=== PATIENT | male | born 1995 ===

== ENCOUNTER 2017-03-18 19:07 | Emergency (ER) | payer MEDICAID ==
[2017-03-18 19:23] VITALS: BP 145/73; PULSE 89; RESP 16; TEMP 102; O2SAT 99
[2017-03-18] MEDS ORDERED: Sodium Chloride 0.9% 1,000 ML IV STA (19:40)
[2017-03-18 20:20] LABS: BASO % 0.1 % (0.0-2.0); EOS % 0.2 % (0.0-4.0); HEMOGLOBIN 14.7 g/dL (12.0-18.0); LYMPH # 0.8 K/uL (1.0-4.3); LYMPH % 3.7 % (20.0-40.0); MEAN CELL VOLUME 91.1 fl (80.0-94.0); MEAN CORPUSCULAR HEMOGLOBIN 31.1 pg (27.0-31.0); MEAN CORPUSCULAR HGB CONC 34.2 g/dL (33.0-37.0); MEAN PLATELET VOLUME 7.8 fl (7.2-11.7); MONO # 1.3 K/uL (0.0-0.8); MONO % 6.3 % (0.0-10.0); NEUT # 19.1 K/uL (1.8-7.0); NEUT % 89.7 % (50.0-75.0); PLATELET COUNT 224 K/uL (130-400); RBC 4.72 Mil/uL (4.40-5.90); RED CELL DISTRIBUTION WIDTH 12.8 % (11.5-14.5); WHITE BLOOD COUNT 21.4 K/uL (4.8-10.8)
--- NOTE | 2017-03-18 20:21 | ED PDOC ---
HPI: CCC, URI, Sore Throat Time Seen by Provider: 03/18/17 19:30 Chief Complaint (Nursing): ENT Problem Chief Complaint (Provider): ENT Problem History Per: Patient History/Exam Limitations: no limitations Onset/Duration Of Symptoms: Days (x1) Sick Contacts (Context): Family Member(s) Associated Symptoms: Fever, Chills, Sore Throat, Vomiting Additional Complaint(s): Suleman Fuller, 21 year old male presents to the ED for a sore throat occurring for 1 day prior to arrival beginning in the morning. The patient reports he has had recent sick contacts stating his family members whom he lives with have strep throat, therefore the patient thinks he also has strep throat. He also states he has epigastric pain, vomited a couple of times today, chills, fever, and body aches. He denies cough, diarrhea, chest pain, shortness of breath, and has not taken any medications for his fever or sore throat. PMD: [facility] Past Medical History Reviewed: Historical Data, Nursing Documentation, Vital Signs Vital Signs: Last Vital Signs Temp 102.0 F H 03/18/17 19:19 Pulse 89 03/18/17 19:19 Resp 16 03/18/17 19:19 BP 145/73 03/18/17 19:19 Pulse Ox 99 03/18/17 20:33 - Medical History PMH: Asthma - Family History Family History: States: Unknown Family Hx - Social History Current smoker - smoking cessation education provided: No Ex-Smoker (has not smoked in the last 12 months): No Alcohol: None Drugs: Cannabis (occasional) - Home Medications Home Medications: Ambulatory Orders Medication Instructions Recorded Montelukast [Singulair] 10 mg PO DAILY 12/20/14 Ibuprofen 600 mg PO Q8H PRN #60 tab 03/12/15 Acetaminophen/Codeine 1 tab PO Q4H #10 tab 05/13/16 [Tylenol/Codeine 300 MG/30 MG] Cephalexin [cephalexin] 500 mg PO BID #14 cap 05/13/16 Ibuprofen [Motrin] 600 mg PO Q8 PRN #21 tab 06/23/16 Amoxicillin 875 mg PO BID #20 tablet 03/18/17 Ibuprofen [Motrin] 400 mg PO Q6 PRN #20 tab 03/18/17 Ondansetron ODT [Zofran ODT] 4 mg PO Q8 PRN #12 odt 03/18/17 - Allergies Allergies/Adverse Reactions: Allergies Allergy/AdvReac Type Severity Reaction Status Date / Time No Known Allergies Allergy Verified 05/13/16 21:37 Review of Systems ROS Statement: Except As Marked, All Systems Reviewed And Found Negative Constitutional: Positive for: Fever, Chills ENT: Positive for: Throat Pain (sore throat) Cardiovascular: Negative for: Chest Pain Respiratory: Negative for: Cough, Shortness of Breath Gastrointestinal: Positive for: Vomiting, Abdominal Pain (epigastric pain). Negative for: Diarrhea Musculoskeletal: Positive for: Other (body aches) Physical Exam - Reviewed Nursing Documentation Reviewed: Yes Vital Signs Reviewed: Yes - Physical Exam Appears: Positive for: Well, Non-toxic, No Acute Distress Head Exam: Positive for: ATRAUMATIC, NORMAL INSPECTION, NORMOCEPHALIC Skin: Positive for: Normal Color, Warm, DRY Eye Exam: Positive for: EOMI, Normal appearance, PERRL ENT: Positive for: Normal ENT Inspection, Tonsillar Exudate (white exudates bilaterally ), Other (moist mucous membranes; tonsillar erythema bilaterally; no peritonsillar abscess ) Neck: Positive for: Normal, Painless ROM, Supple Cardiovascular/Chest: Positive for: Regular Rate, Rhythm. Negative for: Murmur , Tachycardia Respiratory: Positive for: CNT, Normal Breath Sounds Gastrointestinal/Abdominal: Positive for: Normal Exam, Bowel Sounds, Soft, Tenderness (epigastric tenderness ) Back: Positive for: Normal Inspection Extremity: Positive for: Normal ROM Lymphatic: Negative for: Adenopathy Neurologic/Psych: Positive for: Alert, Oriented - Laboratory Results Result Diagrams: 03/18/17 20:00 03/18/17 20:00 - ECG O2 Sat by Pulse Oximetry: 99 (RA) Pulse Ox Interpretation: Normal - Progress Re-evaluation Time: 21:31 Condition: Re-examined, Improved Medical Decision Making Medical Decision Making: Impression: Tonsillitis and abdominal pain Differential includes but is not limited to strep pharyngitis and gastritis, pancreatitis associated with the strep pharyngitis Plan: * COMP Metabolic panel * Lipase * CBC (With Differential) * Sodium Chloride 0.9% 1,000 ml IV 1,000 mls/hr * Toradol 30 mg IVP * Tylenol 325 mg tab 650 mg PO * Zofran Inj 4 mg IV * Rapid Strep Group A Antigen * Reevaluation Scribe Attestation: Documented by Nolvia Aranda, acting as a scribe for Maria Elena Ruiz MD. Provider Scribe Attestation: All medical record entries made by the Scribe were at my direction and personally dictated by me. I have reviewed the chart and agree that the record accurately reflects my personal performance of the history, physical exam, medical decision making, and the department course for this patient. I have also personally directed, reviewed, and agree with the discharge instructions and disposition. Disposition - Clinical Impression Clinical Impression: Tonsillitis, Streptococcal sore throat - Patient ED Disposition Is Patient to be Admitted: No Doctor Will See Patient In The: Office Counseled Patient/Family Regarding: Studies Performed, Diagnosis, Need For Followup - Disposition Referrals: [facility] [Outside] Disposition: Routine/Home Disposition Time: 21:31 Condition: GOOD Additional Instructions: Take your medications as instructed. Follow up with your PCP in 2-3 days. Prescriptions: Amoxicillin 875 mg PO BID #20 tablet Ibuprofen [Motrin] 400 mg PO Q6 PRN #20 tab PRN Reason: Sore Throat Ondansetron ODT [Zofran ODT] 4 mg PO Q8 PRN #12 odt PRN Reason: Nausea/Vomiting Instructions: Strep Throat (ED) Forms: [employer] (Welsh)
[2017-03-18 20:38] LABS: ALB/GLOB RATIO 1.5 (1.0-2.1); ALT/SGPT 34 U/L (21-72); AST/SGOT 35 U/L (17-59); BLOOD UREA NITROGEN 11 mg/dl (9-20); CALCIUM 9.6 mg/dL (8.4-10.2); GFR AFRICAN-AMERICAN > 60; GFR NON-AFRICAN AMERICAN > 60; LIPASE 25 U/L (23-300)
[2017-03-18 21:54] LABS: ANISOCYTOSIS SLIGHT; LARGE PLATELETS PRESENT; LYMPHOCYTE 3 % (20-50); MONOCYTE 7 % (0-10); NEUTROPHIL 90 % (42-75); PLATELET ESTIMATE NORMAL (NORMAL); TEARDROP CELLS SLIGHT; TOTAL CELLS COUNTED 100
== END 2017-03-18 22:00 | disposition home or self-care (01) ==
LOC: H.ER 19:07
DX: J02.0 Streptococcal pharyngitis (principal)

== ENCOUNTER 2017-04-08 13:03 | Emergency (ER) | payer MEDICAID ==
[2017-04-08 13:16] VITALS: BP 138/80; PULSE 57; RESP 16; TEMP 98.4; O2SAT 99
--- NOTE | 2017-04-08 14:09 | ED PDOC ---
Lower Extremity Pain/Injury Time Seen by Provider: 04/08/17 13:18 Chief Complaint (Nursing): Lower Extremity Problem/Injury Chief Complaint (Provider): Ankle Injury History Per: Patient History/Exam Limitations: no limitations Onset/Duration Of Symptoms: Hrs Current Symptoms Are (Timing): Still Present Additional Complaint(s): Suleman Fuller Jr, a 21 year old female, presents to the Ed with an ankle injury. The patient states that he was playing basketball jumped and fell twisting his ankle. He states that he took motrin as soon as he sustained the injury and again just before he went to bed. The patient states that when he woke up he noticed that she was unable to bear weight on the ankle. He states that he has sprained his ankle a few times in the past but it has never been this bad. - Ankle/Foot Description Of Injury: Twisted Currently Unable To: Bear Weight Past Medical History Reviewed: Historical Data, Nursing Documentation, Vital Signs Vital Signs: Last Vital Signs Temp 98.4 F 04/08/17 13:13 Pulse 57 L 04/08/17 13:13 Resp 16 04/08/17 13:13 BP 138/80 04/08/17 13:13 Pulse Ox 99 04/08/17 13:13 - Medical History PMH: Asthma - Surgical History Surgical History: No Surg Hx - Family History Family History: States: Unknown Family Hx - Living Arrangements Living Arrangements: With Family - Home Medications Home Medications: Ambulatory Orders Medication Instructions Recorded Montelukast [Singulair] 10 mg PO DAILY 12/20/14 Ibuprofen 600 mg PO Q8H PRN #60 tab 03/12/15 Acetaminophen/Codeine 1 tab PO Q4H #10 tab 05/13/16 [Tylenol/Codeine 300 MG/30 MG] Cephalexin [cephalexin] 500 mg PO BID #14 cap 05/13/16 Ibuprofen [Motrin] 600 mg PO Q8 PRN #21 tab 06/23/16 Amoxicillin 875 mg PO BID #20 tablet 03/18/17 Ibuprofen [Motrin] 400 mg PO Q6 PRN #20 tab 03/18/17 Ondansetron ODT [Zofran ODT] 4 mg PO Q8 PRN #12 odt 03/18/17 - Allergies Allergies/Adverse Reactions: Allergies Allergy/AdvReac Type Severity Reaction Status Date / Time No Known Allergies Allergy Verified 05/13/16 21:37 Review of Systems Musculoskeletal: Positive for: Other (Right ankle pain) Physical Exam - Reviewed Nursing Documentation Reviewed: Yes Vital Signs Reviewed: Yes - Physical Exam Appears: Positive for: Non-toxic, No Acute Distress Head Exam: Positive for: ATRAUMATIC, NORMAL INSPECTION, NORMOCEPHALIC Eye Exam: Positive for: Normal appearance, EOMI, PERRL Extremity: Positive for: Tenderness (Tenderness of lateral and medial malleolus of right ankle.), Swelling (swelling 2cm proximal to lateral malleolus of right ankle.). Negative for: Normal ROM (Decreased ROM secondary to pain), Pedal Edema, Calf Tenderness, Deformity Neurologic/Psych: Positive for: Alert, Oriented - ECG O2 Sat by Pulse Oximetry: 99 (RA) Pulse Ox Interpretation: Normal Medical Decision Making Medical Decision Makin Initial Impression: 21 year old male presenting with right ankle pain Initial Plan: * RAD Ankle Ap/LAT * Motrin Tab 600mg PO * Reevaluation No acute fracture or dislocation Scribe Attestation Documented by Cris Stacy acting as a scribe for Mary Raya PA-C. Scribe Attestation All medical record entries made by the Scribe were at my direction and personally dictated by me. I have reviewed the chart and agree that the record accurately reflects my personal performance of the history, physical exam, medical decision making, and the department course for this patient. I have also personally directed, reviewed, and agree with the discharge instructions and disposition. Disposition - Clinical Impression Clinical Impression: Ankle sprain - Patient ED Disposition Is Patient to be Admitted: No Counseled Patient/Family Regarding: Diagnosis, Need For Followup - Disposition Referrals: Martin Biswas III, MD [Staff Provider] - Disposition: Routine/Home Disposition Time: 14:38 Condition: GOOD Additional Instructions: Ice, elevation, motrin Instructions: Ankle Sprain (ED)
--- NOTE | 2017-04-08 14:25 | RAD ---
PROCEDURE: Right Ankle Radiographs. HISTORY: twisted ankle yesterday COMPARISON: 12/24/2014 FINDINGS: BONES: Bone alignment and mineralization are normal. There is no acute fracture. JOINTS: Normal. No osteoarthritis. Ankle mortise maintained. Talar dome intact SOFT TISSUES: Normal. OTHER FINDINGS: None. IMPRESSION: No acute fracture or dislocation.
== END 2017-04-08 15:14 | disposition home or self-care (01) ==
LOC: H.ER 13:03
DX: S93.401A Sprain of unspecified ligament of right ankle, initial encounter (principal); X50.9XXA Other and unspecified overexertion or strenuous movements or postures, initial encounter; Y92.310 Basketball court as the place of occurrence of the external cause

== ENCOUNTER 2017-08-20 13:21 | Emergency (ER) | payer MEDICAID ==
[2017-08-20 13:49] VITALS: BP 119/71; PULSE 54; RESP 18; TEMP 98; O2SAT 99
--- NOTE | 2017-08-20 15:18 | ED PDOC ---
HPI: Abdomen Time Seen by Provider: 08/20/17 14:26 Chief Complaint (Nursing): Abdominal Pain Chief Complaint (Provider): Generalized abdominal pain, 1 month History Per: Patient History/Exam Limitations: no limitations Onset/Duration Of Symptoms: Days Outside of [place] travel?: No Current Symptoms Are (Timing): Still Present Location Of Pain/Discomfort: Diffuse Additional Complaint(s): Pt reports pain only in the morning for 1 month . Pt reports pain diffuse and crampy. PT states he does smoke marijuana nightly and also eating greasy foods at night. Pt has not been seen or tried any OTC medications. PT states it often feels better after BM in the am. Past Medical History Reviewed: Historical Data, Nursing Documentation, Vital Signs Vital Signs: Last Vital Signs Temp 98.0 F 08/20/17 13:47 Pulse 54 L 08/20/17 13:47 Resp 18 08/20/17 13:47 BP 119/71 08/20/17 13:47 Pulse Ox 99 08/20/17 13:47 - Medical History PMH: Asthma - Surgical History Surgical History: No Surg Hx - Family History Family History: States: Unknown Family Hx - Living Arrangements Living Arrangements: With Family - Social History Current smoker - smoking cessation education provided: No - Home Medications Home Medications: Ambulatory Orders Medication Instructions Recorded Montelukast [Singulair] 10 mg PO DAILY 12/20/14 Ibuprofen 600 mg PO Q8H PRN #60 tab 03/12/15 Acetaminophen/Codeine 1 tab PO Q4H #10 tab 05/13/16 [Tylenol/Codeine 300 MG/30 MG] Cephalexin [cephalexin] 500 mg PO BID #14 cap 05/13/16 Ibuprofen [Motrin] 600 mg PO Q8 PRN #21 tab 06/23/16 Amoxicillin 875 mg PO BID #20 tablet 03/18/17 Ibuprofen [Motrin] 400 mg PO Q6 PRN #20 tab 03/18/17 Ondansetron ODT [Zofran ODT] 4 mg PO Q8 PRN #12 odt 03/18/17 - Allergies Allergies/Adverse Reactions: Allergies Allergy/AdvReac Type Severity Reaction Status Date / Time No Known Allergies Allergy Verified 05/13/16 21:37 Review of Systems ROS Statement: Except As Marked, All Systems Reviewed And Found Negative Constitutional: Negative for: Fever, Chills Gastrointestinal: Positive for: Abdominal Pain Physical Exam - Reviewed Nursing Documentation Reviewed: Yes Vital Signs Reviewed: Yes - Physical Exam Appears: Positive for: Well, Non-toxic, No Acute Distress Head Exam: Positive for: ATRAUMATIC, NORMAL INSPECTION, NORMOCEPHALIC Skin: Positive for: Normal Color, Warm, DRY Eye Exam: Positive for: Normal appearance ENT: Positive for: Normal ENT Inspection Neck: Positive for: Normal, Painless ROM Cardiovascular/Chest: Positive for: Regular Rate, Rhythm Respiratory: Positive for: CNT, Normal Breath Sounds Gastrointestinal/Abdominal: Positive for: Normal Exam, Bowel Sounds, Soft Back: Positive for: Normal Inspection Extremity: Positive for: Normal ROM Neurologic/Psych: Positive for: Alert, Oriented - ECG O2 Sat by Pulse Oximetry: 99 Medical Decision Making Medical Decision Making: Discussed decreasing marijuana use and probiotics. Disposition - Clinical Impression Clinical Impression: Abdominal pain - Patient ED Disposition Is Patient to be Admitted: No Counseled Patient/Family Regarding: Diagnosis, Need For Followup - Disposition Disposition: Routine/Home Disposition Time: 15:14 Condition: GOOD Instructions: Abdominal Pain (ED)
== END 2017-08-20 14:30 | disposition home or self-care (01) ==
LOC: H.ER 13:21
DX: R10.9 Unspecified abdominal pain (principal)

== ENCOUNTER 2017-11-28 20:55 | Emergency (ER) | payer MEDICAID ==
[2017-11-28 21:02] VITALS: BP 134/74; PULSE 50; RESP 14; TEMP 98.3; O2SAT 98
--- NOTE | 2017-11-28 21:05 | ED PDOC ---
Upper Extremity Pain/Injury Time Seen by Provider: 11/28/17 21:02 Chief Complaint (Nursing): Finger,Hand,&Wrist Chief Complaint (Provider): right hand and wrist pain History Per: Patient Additional Complaint(s): 21-year-old right-hand dominant male presents with pain to right hand and wrist status post punching a wall about 1 hour prior to arrival. Patient denies numbness or tingling to the affected area. He did not take any medicine for pain relief prior to arrival. PMD: none Past Medical History Reviewed: Historical Data, Nursing Documentation, Vital Signs Vital Signs: Last Vital Signs Temp 98.3 F 11/28/17 20:59 Pulse 50 L 11/28/17 20:59 Resp 14 11/28/17 20:59 BP 134/74 11/28/17 20:59 Pulse Ox 98 11/28/17 20:59 - Medical History PMH: Asthma - Surgical History Surgical History: No Surg Hx - Family History Family History: States: No Known Family Hx - Living Arrangements Living Arrangements: With Family - Social History Current smoker - smoking cessation education provided: No Alcohol: None Drugs: Denies - Home Medications Home Medications: Ambulatory Orders Medication Instructions Recorded Montelukast [Singulair] 10 mg PO DAILY 12/20/14 Ibuprofen 600 mg PO Q8H PRN #60 tab 03/12/15 Acetaminophen/Codeine 1 tab PO Q4H #10 tab 05/13/16 [Tylenol/Codeine 300 MG/30 MG] Cephalexin [cephalexin] 500 mg PO BID #14 cap 05/13/16 Ibuprofen [Motrin] 600 mg PO Q8 PRN #21 tab 06/23/16 Amoxicillin 875 mg PO BID #20 tablet 03/18/17 Ibuprofen [Motrin] 400 mg PO Q6 PRN #20 tab 03/18/17 Ondansetron ODT [Zofran ODT] 4 mg PO Q8 PRN #12 odt 03/18/17 Ibuprofen [Motrin Tab] 800 mg PO Q8 PRN #20 tab 11/28/17 - Allergies Allergies/Adverse Reactions: Allergies Allergy/AdvReac Type Severity Reaction Status Date / Time No Known Allergies Allergy Verified 11/28/17 20:58 Review of Systems ROS Statement: Except As Marked, All Systems Reviewed And Found Negative Musculoskeletal: Positive for: Other (right hand and wrist pain) Physical Exam - Reviewed Nursing Documentation Reviewed: Yes Vital Signs Reviewed: Yes - Physical Exam Appears: Positive for: Well Skin: Negative for: Rash Eye Exam: Positive for: Normal appearance Neck: Positive for: Normal, Painless ROM Extremity: Positive for: Other (mild swelling and tenderness overlying 4th and 5th metacarpal of right hand, full rom of all digits of right hand, full rom of wrist with moderate pain to ulnar aspect, no snuff box tenderness) Neurologic/Psych: Positive for: Alert, Oriented - ECG O2 Sat by Pulse Oximetry: 98 Pulse Ox Interpretation: Normal - Other Rad right hand and wrist x-ray X-Ray: Interpreted by Me, Viewed By Me X-Ray Interpretation: no fx, no dis Medical Decision Making Medical Decision Makin21 year old with right hand and wrist pain Plan: PO motrin Right hand and wrist x-ray Patient is aware of x-ray results, all questions answered. Metacarpal splint applied. Patient given prescription for Motrin. He was referred to hand specialist operational risk consultant for follow-up. Procedures - Splinting Location: right hand Pre-Made Type: metal (metallic pre-made metacarpal splint, secured with mayra wrap ) Pre-Proc Neuro Vasc Exam: normal Post-Proc Neuro Vasc Exam: normal Disposition - Clinical Impression Clinical Impression: Hand contusion, Wrist sprain - Patient ED Disposition Is Patient to be Admitted: No Counseled Patient/Family Regarding: Studies Performed, Diagnosis, Need For Followup, Rx Given - Disposition Referrals: Juan Hall MD [Medical Doctor] - Disposition: Routine/Home Disposition Time: 21:23 Condition: STABLE Additional Instructions: Ice, rest and elevate affected area. Take rx meds as directed as needed for pain. Follow up with hand specialist in 2-3 days. Prescriptions: Ibuprofen [Motrin Tab] 800 mg PO Q8 PRN #20 tab PRN Reason: Pain, Moderate (4-7) Instructions: Wrist Sprain (DC), Contusion (DC) Forms: [employer] (Vietnamese), [facility] ED School/Work Excuse
--- NOTE | 2017-11-29 07:45 | RAD ---
PROCEDURE: Right Hand Radiographs. HISTORY: trauma COMPARISON: None. FINDINGS: BONES: No acute fracture or destructive bony lesion identified. JOINTS: Normal. No osteoarthritic changes. SOFT TISSUES: Normal. OTHER FINDINGS: None. IMPRESSION: Unremarkable right hand radiographs.
--- NOTE | 2017-11-29 07:49 | RAD ---
PROCEDURE: Right Wrist Radiographs. HISTORY: trauma COMPARISON: None. FINDINGS: BONES: No acute fracture or destructive bony lesion identified, including the navicular bone. JOINTS: Normal. No dislocation. SOFT TISSUES: Normal. OTHER FINDINGS: None. IMPRESSION: Unremarkable right wrist radiographs.
== END 2017-11-28 21:41 | disposition home or self-care (01) ==
LOC: H.ER 20:55
DX: S63.501A Unspecified sprain of right wrist, initial encounter (principal); W22.8XXA Striking against or struck by other objects, initial encounter; Y92.89 Other specified places as the place of occurrence of the external cause

== ENCOUNTER 2018-06-17 08:57 | Emergency (ER) | payer MEDICAID ==
[2018-06-17 09:12] VITALS: BMI 25.9
[2018-06-17] MEDS ORDERED: Sodium Chloride 0.9% 1,000 ML IV STA (10:08)
[2018-06-17] MEDS ORDERED: Alum-Mag Hydrox-Simethicone Susp (30 mL) PO STA (10:08)
[2018-06-17] MEDS ORDERED: Alum-Mag Hydrox-Simethicone Susp (30 mL) ONE (10:18)
[2018-06-17 10:20] LABS: BASO # 0.1 K/uL (0.0-0.2); BASO % 1.3 % (0.0-2.0); EOS # 0.2 K/uL (0.0-0.7); EOS % 2.6 % (0.0-4.0); HEMOGLOBIN 14.7 g/dL (12.0-18.0); LYMPH # 2.8 K/uL (1.0-4.3); LYMPH % 37.7 % (20.0-40.0); MEAN CELL VOLUME 90.2 fl (80.0-94.0); MEAN CORPUSCULAR HGB CONC 34.3 g/dL (33.0-37.0); MEAN PLATELET VOLUME 8.1 fl (7.2-11.7); MONO # 0.5 K/uL (0.0-0.8); MONO % 6.9 % (0.0-10.0); NEUT # 3.8 K/uL (1.8-7.0); NEUT % 51.5 % (50.0-75.0); NRBC % 0.1 % (0.0-0.0); RBC 4.75 Mil/uL (4.40-5.90); RED CELL DISTRIBUTION WIDTH 12.8 % (11.5-14.5); WHITE BLOOD COUNT 7.4 K/uL (4.8-10.8)
[2018-06-17 10:36] LABS: ALB/GLOB RATIO 1.2 (1.0-2.1); ALBUMIN 4.6 g/dL (3.5-5.0); BLOOD UREA NITROGEN 17 mg/dl (9-20); CALCIUM 9.5 mg/dL (8.4-10.2); GFR NON-AFRICAN AMERICAN > 60; LIPASE 240 U/L (23-300)
[2018-06-17 10:40] LABS: ALT/SGPT 34 U/L (21-72); AST/SGOT 44 U/L (17-59)
--- NOTE | 2018-06-17 11:57 | US ---
Date of service: 06/17/2018 HISTORY: epigastric abd pain COMPARISON: None. TECHNIQUE: Sonographic evaluation of the right upper quadrant of the abdomen. FINDINGS: LIVER: Measures 16.5 cm in length. Normal echogenicity of the liver parenchyma. No mass. No intrahepatic bile duct dilatation. GALLBLADDER: Unremarkable. No gallstones. COMMON BILE DUCT: Measures 2.7 mm. No stones. No dilatation. PANCREAS: Unremarkable as visualized. No mass. No ductal dilatation. RIGHT KIDNEY: Measures 1.1 cm in length. Normal echogenicity. No calculus, mass, or hydronephrosis. AORTA: No aneurysmal dilatation. IVC: Unremarkable. OTHER FINDINGS: None . IMPRESSION: The tail the pancreas is partially obscured by overlying bowel gas with remainder the examination unremarkable appearing including the gallbladder and visualized biliary tree.
--- NOTE | 2018-06-17 12:00 | ED PDOC ---
HPI: Abdomen Time Seen by Provider: 06/17/18 09:27 Chief Complaint (Nursing): Abdominal Pain History Per: Patient Additional Complaint(s): Pt. states this morning he had non-radiating epigastric abd pain that woke him up from sleep. Reports abd pain has been present for several months but this has been the worse. States he attempted to take Pepto Bismol without relief. Reports he has been evaluated by Dr. Smyth in the past without any relief. Also reports 2 episodes of non-bloody vomiting. States he feel better after vomiting but then he ate and pain returned. Denies fever, chest pain, hematemesis, diarrhea, constipation, melena, hemaotchezia, previous abdominal surgeries. PMD: [facility] Past Medical History Reviewed: Historical Data, Nursing Documentation, Vital Signs Vital Signs: Last Vital Signs Temp 97.7 F 06/17/18 09:12 Pulse 58 L 06/17/18 09:12 Resp 20 06/17/18 09:12 BP 115/75 06/17/18 09:12 Pulse Ox 98 06/17/18 09:12 - Medical History PMH: Asthma - Surgical History Surgical History: No Surg Hx - Family History Family History: States: No Known Family Hx - Social History Drugs: Cannabis (3x/day) - Home Medications Home Medications: Ambulatory Orders Medication Instructions Recorded Montelukast [Singulair] 10 mg PO DAILY 12/20/14 RX: Ibuprofen 600 mg PO Q8H PRN #60 tab 03/12/15 Cephalexin [cephalexin] 500 mg PO BID #14 cap 05/13/16 RX: Acetaminophen/Codeine 1 tab PO Q4H #10 tab 05/13/16 [Tylenol/Codeine 300 MG/30 MG] Ibuprofen [Motrin] 600 mg PO Q8 PRN #21 tab 06/23/16 Ibuprofen [Motrin] 400 mg PO Q6 PRN #20 tab 03/18/17 Ondansetron ODT [Zofran ODT] 4 mg PO Q8 PRN #12 odt 03/18/17 RX: Amoxicillin 875 mg PO BID #20 tablet 03/18/17 Ibuprofen [Motrin Tab] 800 mg PO Q8 PRN #20 tab 11/28/17 Famotidine [Pepcid] 20 mg PO DAILY PRN #10 tab 06/17/18 - Allergies Allergies/Adverse Reactions: Allergies Allergy/AdvReac Type Severity Reaction Status Date / Time No Known Allergies Allergy Verified 11/28/17 20:58 Review of Systems ROS Statement: Except As Marked, All Systems Reviewed And Found Negative Gastrointestinal: Positive for: Nausea, Vomiting, Abdominal Pain Physical Exam - Physical Exam Appears: Positive for: Well, Non-toxic, No Acute Distress Skin: Positive for: Normal Color, Warm. Negative for: Rash Eye Exam: Positive for: Normal appearance. Negative for: Scleral icterus (b/l) Cardiovascular/Chest: Positive for: Regular Rate, Rhythm Respiratory: Positive for: CNT, Normal Breath Sounds Gastrointestinal/Abdominal: Positive for: Normal Exam, Soft, Other (Negative Hansen's sign's). Negative for: Tenderness Back: Positive for: Normal Inspection. Negative for: L CVA Tenderness, R CVA Tenderness Neurologic/Psych: Positive for: Alert, Oriented (x3). Negative for: Aphasia, Facial Droop - Laboratory Results Result Diagrams: 06/17/18 10:15 06/17/18 10:15 - ECG O2 Sat by Pulse Oximetry: 98 - Progress ED Course And Treament: Labs, abd US, pepcid 20mg IV, zofran 4mg IV, IV NS bolus x 1 ordered. Abd US: negative On re-evaluation, pt. reports feeling much better. Abd soft and non-tender. I nformed of results. Disposition - Clinical Impression Clinical Impression: Dyspepsia - Patient ED Disposition Is Patient to be Admitted: No - Disposition Referrals: Sean Smyth MD [Staff Provider] - Disposition: Routine/Home Disposition Time: 12:56 Condition: IMPROVED Additional Instructions: TONG YOUSIF JR, thank you for letting us take care of you today. Your provider was Suzy Hidalgo MD and you were treated for ABD PAIN. The emergency medical care you received today was directed at your acute symptoms. If you were prescribed any medication, please fill it and take as directed. It may take several days for your symptoms to resolve. Return to the Emergency Department if your symptoms worsen, do not improve, or if you have any other problems. Please contact your doctor or call one of the physicians/clinics you have been referred to that are listed on the Patient Visit Information form that is included in your discharge packet. Bring any paperwork you were given at discharge with you along with any medications you are taking to your follow up visit. Our treatment cannot replace ongoing medical care by a primary care dominique aguirre outside of the emergency department. Thank you for allowing the [facility] team to be part of your care today. If you had an X-Ray or CT scan: A Radiologist will review the ED reading if any change in treatment is needed we will contact you. If you had a blood, urine, or wound culture: It will take several days for the results, if any change in treatment is needed we will contact you. If you had an STI test: It will take 48 hours for the results. Please call after 1 week if you have not heard back. Prescriptions: Famotidine [Pepcid] 20 mg PO DAILY PRN #10 tab PRN Reason: Dyspepsia Instructions: Dyspepsia (DC) Forms: [employer] ([place]an), [facility] ED School/Work Excuse Print Language: BAHAMIAN
[2018-06-17 13:05] VITALS: BP 123/74; PULSE 87; RESP 16; TEMP 98.2
[2018-06-18 11:16] VITALS: O2SAT 98
== END 2018-06-17 13:05 | disposition home or self-care (01) ==
LOC: SUPCPDRO 08:57 → H.ER 08:57
DX: K30 Functional dyspepsia (principal)
CPT/HCPCS: 76705; 80053; 83690; 85025; 96374; 96375; 99284; J2405; J7030

== ENCOUNTER 2018-07-16 13:52 | Emergency (ER) | payer MEDICAID ==
[2018-07-16 13:53] VITALS: BMI 25.9
[2018-07-16 14:12] VITALS: BP 133/81; PULSE 84; RESP 16; TEMP 98.2; O2SAT 99
[2018-07-16 16:23] LABS: BASO # 0.1 K/uL (0.0-0.2); BASO % 0.9 % (0.0-2.0); EOS # 0.3 K/uL (0.0-0.7); EOS % 3.3 % (0.0-4.0); LYMPH # 2.4 K/uL (1.0-4.3); MEAN CELL VOLUME 90.2 fl (80.0-94.0); MEAN CORPUSCULAR HEMOGLOBIN 30.7 pg (27.0-31.0); MEAN PLATELET VOLUME 7.7 fl (7.2-11.7); MONO # 0.5 K/uL (0.0-0.8); MONO % 7.2 % (0.0-10.0); NEUT # 4.4 K/uL (1.8-7.0); NEUT % 57.6 % (50.0-75.0); NRBC % 0.1 % (0.0-0.0); RBC 4.55 Mil/uL (4.40-5.90); RED CELL DISTRIBUTION WIDTH 12.5 % (11.5-14.5); WHITE BLOOD COUNT 7.6 K/uL (4.8-10.8)
--- NOTE | 2018-07-16 16:24 | ED PDOC ---
HPI: Male Pain Time Seen by Provider: 07/16/18 15:14 Chief Complaint (Nursing): Male Genitourinary Chief Complaint (Provider): Male Genitourinary History Per: Patient History/Exam Limitations: no limitations Onset/Duration Of Symptoms: Days Current Symptoms Are (Timing): Still Present Additional Complaint(s): 22 y/o male presents with several days of a painful bump to the shaft of the penis. Patient states it started out small and "looked like a pimple". However, the bump grew causing the patient to see his PMD. Patient states the full workup for STDs was negative. However, this morning, the bump got bigger and started to drain pus. As per patient, pus stopped and the pain improved a little but the bump was still present. Patient is requesting a repeat STD screen. Patient denies pain with urination, abdominal pain, fevers, confusion and shortness of breath. PMD: Sean Smyth Past Medical History Reviewed: Historical Data, Nursing Documentation, Vital Signs Vital Signs: Last Vital Signs Temp 98.2 F 07/16/18 14:08 Pulse 84 07/16/18 14:08 Resp 16 07/16/18 14:08 BP 133/81 07/16/18 14:08 Pulse Ox 99 07/16/18 14:08 - Medical History PMH: Asthma - Surgical History Surgical History: No Surg Hx - Family History Family History: States: Unknown Family Hx - Home Medications Home Medications: Ambulatory Orders Medication Instructions Recorded Montelukast [Singulair] 10 mg PO DAILY 12/20/14 RX: Ibuprofen 600 mg PO Q8H PRN #60 tab 03/12/15 Cephalexin [cephalexin] 500 mg PO BID #14 cap 05/13/16 RX: Acetaminophen/Codeine 1 tab PO Q4H #10 tab 05/13/16 [Tylenol/Codeine 300 MG/30 MG] Ibuprofen [Motrin] 600 mg PO Q8 PRN #21 tab 06/23/16 Ibuprofen [Motrin] 400 mg PO Q6 PRN #20 tab 03/18/17 Ondansetron ODT [Zofran ODT] 4 mg PO Q8 PRN #12 odt 03/18/17 RX: Amoxicillin 875 mg PO BID #20 tablet 03/18/17 Ibuprofen [Motrin Tab] 800 mg PO Q8 PRN #20 tab 11/28/17 Famotidine [Pepcid] 20 mg PO DAILY PRN #10 tab 06/17/18 Cephalexin [cephalexin] 500 mg PO Q6 #40 cap 07/16/18 - Allergies Allergies/Adverse Reactions: Allergies Allergy/AdvReac Type Severity Reaction Status Date / Time No Known Allergies Allergy Verified 07/16/18 14:08 Review of Systems ROS Statement: Except As Marked, All Systems Reviewed And Found Negative Constitutional: Negative for: Fever Respiratory: Negative for: Shortness of Breath Genitourinary Male: Positive for: Other (Abscesss to the shaft of the penis). Negative for: Dysuria Neurological: Negative for: Confusion Physical Exam - Reviewed Nursing Documentation Reviewed: Yes Vital Signs Reviewed: Yes - Physical Exam Appears: Positive for: No Acute Distress Head Exam: Positive for: ATRAUMATIC, NORMOCEPHALIC Skin: Positive for: Normal Color, Warm, Dry Eye Exam: Positive for: Normal appearance, EOMI, PERRL Neck: Positive for: Normal, Painless ROM Cardiovascular/Chest: Positive for: Regular Rate, Rhythm. Negative for: Murmur Respiratory: Positive for: Normal Breath Sounds. Negative for: Respiratory Distress Gastrointestinal/Abdominal: Positive for: Normal Exam, Soft. Negative for: Tenderness Male Genital Exam: Positive for: other (3 mm y 3 mm abscess to the dorsal shaft of the penis justs proximal to the other glands. No palpable fluctuance, no drainage expressed, no drainage from the penis, no testicular swelling, no swollen lymph nodes. Shoshana BASSETT, chaperoned exam) Extremity: Positive for: Normal ROM. Negative for: Deformity Neurologic/Psych: Positive for: Alert, Oriented. Negative for: Motor/Sensory Deficits - Laboratory Results Result Diagrams: 07/16/18 16:17 07/16/18 16:17 - ECG O2 Sat by Pulse Oximetry: 99 (RA) Pulse Ox Interpretation: Normal Medical Decision Making Medical Decision Making: Time: 1528 A/P: Screening for STDs -- Had initially planned to I&D abscess. However, no palpable fluctuance, no active drainage. -- Patient advised to abstain from sexual activity until symptoms resolve. -- Return parameters discussed with the patient. -- BMP -- CBC with Differentials -- Chlamydia/GC RNA, TNA -- HSV 1/2(IGG), HSV(IGM)W/RF -- Wound Culture -- RPR -- Urinalysis 1410 On attempt to drain the abscess, no fluctuance. Pt given antibiotics and i nstructions to follow up with PMD. Pt instructed to return to the ED if symptoms worsened. Scribe Attestation: Documented by Mandeep Hanna, acting as a scribe for Johanna Modi MD. Provider Scribe Attestation: All medical record entries made by the Scribe were at my direction and personally dictated by me. I have reviewed the chart and agree that the record accurately reflects my personal performance of the history, physical exam, medical decision making, and the department course for this patient. I have also personally directed, reviewed, and agree with the discharge instructions and disposition. Disposition - Clinical Impression Clinical Impression: Abscess - Disposition Disposition Time: 14:10 Condition: IMPROVED Additional Instructions: Take Tylenol for pain. Take antibiotics as prescribed. Follow up with primary medical doctor as needed. Return to the emergency department if symptoms worsen or if new symptoms develop. Prescriptions: Cephalexin [cephalexin] 500 mg PO Q6 #40 cap Instructions: Boil (DC) Forms: [employer] (Mongolian), [facility] ED School/Work Excuse Print Language: ARABIC
[2018-07-16 16:30] LABS: URINE AMORPHOUS SEDIMENT MODERATE /ul (<OCC); URINE BACTERIA RARE (<OCC); URINE BILIRUBIN NEGATIVE (NEGATIVE); URINE BLOOD NEGATIVE (NEGATIVE); URINE CLARITY TURBID (Clear); URINE COLOR YELLOW (YELLOW); URINE GLUCOSE (UA) NEG (Normal); URINE LEUKOCYTE ESTERASE NEG Leu/uL (Negative); URINE PROTEIN NEGATIVE (NEGATIVE); URINE UROBILINOGEN 0.2-1.0 mg/dL (0.2-1.0)
[2018-07-16 16:50] LABS: BLOOD UREA NITROGEN 14 mg/dl (9-20); CALCIUM 9.7 mg/dL (8.4-10.2); GFR NON-AFRICAN AMERICAN > 60
== END 2018-07-16 16:30 | disposition home or self-care (01) ==
LOC: H.ER 13:52
DX: N48.21 Abscess of corpus cavernosum and penis (principal); J45.909 Unspecified asthma, uncomplicated

== ENCOUNTER 2018-11-28 11:21 | Emergency (ER) | payer MEDICAID ==
[2018-11-28 11:48] VITALS: BMI 25.8
[2018-11-28] MEDS ORDERED: Sodium Chloride 0.9% 1,000 ML IV STA ×2 (11:55→12:00)
--- NOTE | 2018-11-28 12:16 | ED PDOC ---
HPI: Abdomen Time Seen by Provider: 11/28/18 12:00 Chief Complaint (Nursing): Abdominal Pain Chief Complaint (Provider): ABDOMINAL PAIN/BLOOD IN STOOL History Per: Patient (22 Y/O MALE WITH ONGOING NASAL CONGESTION/COUGH X 1 WEEK NOW TROUBLED WITH VOMITING AND BLOOD IN STOOL TODAY WITH STRAINING. NOTES EPIGASTRIC DISCOMFORT.) Past Medical History Reviewed: Historical Data, Nursing Documentation, Vital Signs Vital Signs: Last Vital Signs Temp 98.4 F 11/28/18 11:48 Pulse 64 11/28/18 11:48 Resp 20 11/28/18 11:48 BP 174/86 H 11/28/18 11:48 Pulse Ox 98 11/28/18 11:48 - Medical History PMH: Asthma - Family History Family History: States: Unknown Family Hx - Home Medications Home Medications: Ambulatory Orders Medication Instructions Recorded Montelukast [Singulair] 10 mg PO DAILY 12/20/14 Ibuprofen 600 mg PO Q8H PRN #60 tab 03/12/15 Acetaminophen/Codeine 1 tab PO Q4H #10 tab 05/13/16 [Tylenol/Codeine 300 MG/30 MG] Cephalexin [cephalexin] 500 mg PO BID #14 cap 05/13/16 Ibuprofen [Motrin] 600 mg PO Q8 PRN #21 tab 06/23/16 Amoxicillin 875 mg PO BID #20 tablet 03/18/17 Ibuprofen [Motrin] 400 mg PO Q6 PRN #20 tab 03/18/17 Ondansetron ODT [Zofran ODT] 4 mg PO Q8 PRN #12 odt 03/18/17 Ibuprofen [Motrin Tab] 800 mg PO Q8 PRN #20 tab 11/28/17 Famotidine [Pepcid] 20 mg PO DAILY PRN #10 tab 06/17/18 Cephalexin [cephalexin] 500 mg PO Q6 #40 cap 07/16/18 Ondansetron ODT [Zofran ODT] 4 mg PO Q8 PRN #10 odt 11/28/18 Pseudoephedrine [Sudafed Tab] 60 mg PO Q6 PRN #24 tab 11/28/18 Ranitidine HCl [Zantac 75] 75 mg PO BID #10 tablet 11/28/18 - Allergies Allergies/Adverse Reactions: Allergies Allergy/AdvReac Type Severity Reaction Status Date / Time No Known Allergies Allergy Verified 07/16/18 14:08 Review of Systems ROS Statement: Except As Marked, All Systems Reviewed And Found Negative Physical Exam - Reviewed Nursing Documentation Reviewed: Yes Vital Signs Reviewed: Yes - Physical Exam Appears: Positive for: Well, Non-toxic, No Acute Distress Head Exam: Positive for: ATRAUMATIC, NORMAL INSPECTION, NORMOCEPHALIC Skin: Positive for: Normal Color, Warm, DRY Eye Exam: Positive for: EOMI, Normal appearance, PERRL ENT: Positive for: Normal ENT Inspection Neck: Positive for: Normal, Painless ROM Cardiovascular/Chest: Positive for: Regular Rate, Rhythm Respiratory: Positive for: CNT, Normal Breath Sounds Gastrointestinal/Abdominal: Positive for: Normal Exam, Soft Back: Positive for: Normal Inspection Rectal: Positive for: Hemorrhoids (EXTERNAL TAG NOTED. MINIMAL STOOL IN VAULT. SMALL REDDISH HUE NOTED.) Extremity: Positive for: Normal ROM Neurological/Psych: Positive for: Awake, Alert, Normal Tone - Laboratory Results Result Diagrams: 11/28/18 12:29 11/28/18 12:29 - ECG O2 Sat by Pulse Oximetry: 98 - Progress ED Course And Treament: ZOFRAN 4 MG IV X 1 DOSE PEPCID 20 MG IV X DOSE NS 1 LITER 500 ML PER HOUR Disposition - Clinical Impression Clinical Impression: Rectal bleeding, Viral illness - Patient ED Disposition Is Patient to be Admitted: No - Disposition Referrals: London Porter MD, PhD [Staff Provider] - Disposition: Routine/Home Disposition Time: 13:26 Condition: FAIR Prescriptions: Ondansetron ODT [Zofran ODT] 4 mg PO Q8 PRN #10 odt PRN Reason: Nausea/Vomiting Pseudoephedrine [Sudafed Tab] 60 mg PO Q6 PRN #24 tab PRN Reason: Nasal Congestion Ranitidine HCl [Zantac 75] 75 mg PO BID #10 tablet Instructions: Bloody Stools, Adult (DC), Viral Syndrome (DC)
[2018-11-28 12:49] LABS: BASO # 0.1 K/uL (0.0-0.2); BASO % 0.9 % (0.0-2.0); EOS # 0.2 K/uL (0.0-0.7); EOS % 1.5 % (0.0-4.0); HEMOGLOBIN 13.3 g/dL (12.0-18.0); LYMPH # 1.9 K/uL (1.0-4.3); LYMPH % 17.2 % (20.0-40.0); MEAN CELL VOLUME 90.7 fl (80.0-94.0); MEAN CORPUSCULAR HEMOGLOBIN 30.6 pg (27.0-31.0); MEAN CORPUSCULAR HGB CONC 33.7 g/dL (33.0-37.0); MEAN PLATELET VOLUME 7.7 fl (7.2-11.7); MONO # 0.8 K/uL (0.0-0.8); MONO % 7.5 % (0.0-10.0); NEUT # 8.1 K/uL (1.8-7.0); NEUT % 72.9 % (50.0-75.0); RBC 4.35 Mil/uL (4.40-5.90); RED CELL DISTRIBUTION WIDTH 12.8 % (11.5-14.5); WHITE BLOOD COUNT 11.1 K/uL (4.8-10.8)
[2018-11-28 13:00] LABS: PROTHROMBIN TIME 11.8 Seconds (9.8-13.1)
[2018-11-28 13:03] LABS: PARTIAL THROMBOPLASTIN TIME 30.6 Seconds (25.6-37.1)
[2018-11-28 13:07] LABS: ALB/GLOB RATIO 1.4 (1.0-2.1); ALBUMIN 4.5 g/dL (3.5-5.0); ALT/SGPT 31 U/L (21-72); AST/SGOT 33 U/L (17-59); BLOOD UREA NITROGEN 11 mg/dl (9-20); CALCIUM 9.2 mg/dL (8.4-10.2); GFR NON-AFRICAN AMERICAN > 60
[2018-11-28 13:50] VITALS: BP 130/66; PULSE 66; RESP 17; TEMP 98.2
[2018-11-28 18:54] VITALS: O2SAT 98
== END 2018-11-28 13:45 | disposition home or self-care (01) ==
LOC: H.ER 11:21
DX: K62.5 Hemorrhage of anus and rectum (principal); B34.9 Viral infection, unspecified; J45.909 Unspecified asthma, uncomplicated
CPT/HCPCS: 80053; 85025; 85610; 85730; 96374; 96375; 99283; J2405; J7030

== ENCOUNTER 2018-11-30 22:03 | Emergency (ER) | payer MEDICAID ==
[2018-11-30 22:03] VITALS: BMI 25.8
[2018-11-30 22:45] VITALS: RESP 16; O2SAT 98
--- NOTE | 2018-11-30 23:24 | ED PDOC ---
HPI: General Adult Time Seen by Provider: 11/30/18 23:01 Chief Complaint (Nursing): Dental Pain Chief Complaint (Provider): facial pain History Per: Patient History/Exam Limitations: no limitations Onset/Duration Of Symptoms: Days (1) Current Symptoms Are (Timing): Still Present Additional Complaint(s): 22 y/o male presents for evaluation of right facial pain x 1 day. Patient states pain is located under right cheekbone, worse when opening and closing mouth. Patient also reports sore throat for 3 days. Denies fever, nausea/vomiting, difficulty speaking/swallowing, tooth pain, chest pain, shortness of breath, palpitations. Past Medical History Reviewed: Historical Data, Nursing Documentation, Vital Signs Vital Signs: Last Vital Signs Temp 99.5 F 11/30/18 22:42 Pulse 88 11/30/18 22:42 Resp 16 11/30/18 22:42 BP 151/74 H 11/30/18 22:42 Pulse Ox 98 11/30/18 22:42 - Medical History PMH: Asthma - Family History Family History: States: Unknown Family Hx - Immunization History Hx Tetanus Toxoid Vaccination: No Hx Influenza Vaccination: No Hx Pneumococcal Vaccination: No - Home Medications Home Medications: Ambulatory Orders Medication Instructions Recorded Montelukast [Singulair] 10 mg PO DAILY 12/20/14 Ibuprofen 600 mg PO Q8H PRN #60 tab 03/12/15 Acetaminophen/Codeine 1 tab PO Q4H #10 tab 05/13/16 [Tylenol/Codeine 300 MG/30 MG] Cephalexin [cephalexin] 500 mg PO BID #14 cap 05/13/16 Ibuprofen [Motrin] 600 mg PO Q8 PRN #21 tab 06/23/16 Amoxicillin 875 mg PO BID #20 tablet 03/18/17 Ibuprofen [Motrin] 400 mg PO Q6 PRN #20 tab 03/18/17 Ondansetron ODT [Zofran ODT] 4 mg PO Q8 PRN #12 odt 03/18/17 Ibuprofen [Motrin Tab] 800 mg PO Q8 PRN #20 tab 11/28/17 Famotidine [Pepcid] 20 mg PO DAILY PRN #10 tab 06/17/18 Cephalexin [cephalexin] 500 mg PO Q6 #40 cap 07/16/18 Ondansetron ODT [Zofran ODT] 4 mg PO Q8 PRN #10 odt 11/28/18 Pseudoephedrine [Sudafed Tab] 60 mg PO Q6 PRN #24 tab 11/28/18 Ranitidine HCl [Zantac 75] 75 mg PO BID #10 tablet 11/28/18 Amoxicillin [Amoxil 500 mg Cap] 500 mg PO TID #20 cap 11/30/18 Ibuprofen [Motrin Tab] 800 mg PO Q8 PRN #15 tab 11/30/18 - Allergies Allergies/Adverse Reactions: Allergies Allergy/AdvReac Type Severity Reaction Status Date / Time No Known Allergies Allergy Verified 07/16/18 14:08 Review of Systems ROS Statement: Except As Marked, All Systems Reviewed And Found Negative ENT: Positive for: Throat Pain Musculoskeletal: Positive for: Other (right facial pain) Physical Exam - Reviewed Nursing Documentation Reviewed: Yes Vital Signs Reviewed: Yes - Physical Exam Appears: Positive for: Well, Non-toxic, No Acute Distress Head Exam: Positive for: ATRAUMATIC, NORMAL INSPECTION, NORMOCEPHALIC Skin: Positive for: Normal Color, Rash ENT: Positive for: Pharyngeal Erythema, Tonsillar Exudate, Tonsillar Swelling, Other (multiple dental caries. Tenderness/edema right upper gumline, + canker sore on right upper buccal mucosa. + right facial tenderness surrounding maxilla. No fluctuance, facial edema/erythema noted) Neck: Positive for: Normal Cardiovascular/Chest: Positive for: Regular Rate, Rhythm Respiratory: Positive for: Normal Breath Sounds Back: Positive for: Normal Inspection Extremity: Positive for: Normal ROM Neurological/Psych: Positive for: Awake, Alert, Oriented (x3) - ECG O2 Sat by Pulse Oximetry: 98 - Progress ED Course And Treament: -ibuprofen PO -rapid strep Patient educated on findings, discharged with rx ibuprofen, Amoxicillin (dose given in ED) Advised dental follow up within 2 days Return precautions given Disposition - Clinical Impression Clinical Impression: Canker sore, Pain, dental - Patient ED Disposition Is Patient to be Admitted: No Counseled Patient/Family Regarding: Studies Performed, Diagnosis, Need For Followup, Rx Given - Disposition Disposition: Routine/Home Disposition Time: 23:44 Condition: IMPROVED Prescriptions: Amoxicillin [Amoxil 500 mg Cap] 500 mg PO TID #20 cap Ibuprofen [Motrin Tab] 800 mg PO Q8 PRN #15 tab PRN Reason: Pain, Moderate (4-7) Instructions: Mouth Sores, Dental Pain Forms: [facility] ED School/Work Excuse
[2018-12-01 00:38] VITALS: BP 125/63; PULSE 65; TEMP 98
== END 2018-12-01 00:38 | disposition home or self-care (01) ==
LOC: H.ER 22:03
DX: K08.89 Other specified disorders of teeth and supporting structures (principal); K12.0 Recurrent oral aphthae

== ENCOUNTER 2018-12-29 07:52 | Emergency (ER) | payer MEDICAID ==
[2018-12-29 07:52] VITALS: BMI 25.8
[2018-12-29] MEDS ORDERED: Sodium Chloride 0.9% 1,000 ML IV STA (08:13)
[2018-12-29] MEDS ORDERED: Iohexol 240 (50 ml) PO ONE (08:14)
--- NOTE | 2018-12-29 08:19 | ED PDOC ---
HPI: Abdomen Time Seen by Provider: 12/29/18 07:58 Chief Complaint (Nursing): Abnormal Skin Integrity Chief Complaint (Provider): abdominal pain History Per: Patient History/Exam Limitations: no limitations Onset/Duration Of Symptoms: Persistent (xmonths), Worse Since (3 days ago) Current Symptoms Are (Timing): Still Present Additional Complaint(s): 23 year old male with medical history of asthma, presents to the emergency department with a complaint of diffuse abdominal pain ongoing for months. Patient states symptoms became worse with eating, subsequently, causes him to vomit. At present, he denies any nausea or vomiting. Additionally, he reports hemorrhoidal pain, that was evaluated in ED on 11/28/18, which resolved then reoccurred 3 days ago associated with intermittent bloody stools. Otherwise, he denies any fever, chills, diarrhea, chest pain, shortness of breath, new diet, leg pain or swelling. Past Medical History Reviewed: Historical Data, Nursing Documentation, Vital Signs Vital Signs: Last Vital Signs Temp 97.5 F L 12/29/18 07:54 Pulse 56 L 12/29/18 07:54 Resp 16 12/29/18 07:54 BP 142/70 12/29/18 07:54 Pulse Ox 97 12/29/18 07:54 Primary Care Provider: Sean Smyth - Medical History PMH: Asthma - Family History Family History: States: Unknown Family Hx - Immunization History Hx Tetanus Toxoid Vaccination: No Hx Influenza Vaccination: No Hx Pneumococcal Vaccination: No - Home Medications Home Medications: Ambulatory Orders Medication Instructions Recorded Montelukast [Singulair] 10 mg PO DAILY 12/20/14 Ibuprofen 600 mg PO Q8H PRN #60 tab 03/12/15 Acetaminophen/Codeine 1 tab PO Q4H #10 tab 05/13/16 [Tylenol/Codeine 300 MG/30 MG] Cephalexin [cephalexin] 500 mg PO BID #14 cap 05/13/16 Ibuprofen [Motrin] 600 mg PO Q8 PRN #21 tab 06/23/16 Amoxicillin 875 mg PO BID #20 tablet 03/18/17 Ibuprofen [Motrin] 400 mg PO Q6 PRN #20 tab 03/18/17 Ondansetron ODT [Zofran ODT] 4 mg PO Q8 PRN #12 odt 03/18/17 Ibuprofen [Motrin Tab] 800 mg PO Q8 PRN #20 tab 11/28/17 Famotidine [Pepcid] 20 mg PO DAILY PRN #10 tab 06/17/18 Cephalexin [cephalexin] 500 mg PO Q6 #40 cap 07/16/18 Ondansetron ODT [Zofran ODT] 4 mg PO Q8 PRN #10 odt 11/28/18 Pseudoephedrine [Sudafed Tab] 60 mg PO Q6 PRN #24 tab 11/28/18 Ranitidine HCl [Zantac 75] 75 mg PO BID #10 tablet 11/28/18 Amoxicillin [Amoxil 500 mg Cap] 500 mg PO TID #20 cap 11/30/18 Ibuprofen [Motrin Tab] 800 mg PO Q8 PRN #15 tab 11/30/18 Hydrocortisone 2.5% (Rectal) 30 applic OK BID 5 Days tube 12/29/18 [Anusol-HC] - Allergies Allergies/Adverse Reactions: Allergies Allergy/AdvReac Type Severity Reaction Status Date / Time No Known Allergies Allergy Verified 07/16/18 14:08 Review of Systems ROS Statement: Except As Marked, All Systems Reviewed And Found Negative Constitutional: Negative for: Fever, Chills Cardiovascular: Negative for: Chest Pain Respiratory: Negative for: Shortness of Breath Gastrointestinal: Positive for: Nausea (resolved), Vomiting (resolved), Abdominal Pain (diffuse), Hematemesis, Rectal Pain (existing hemorroid). Negative for: Diarrhea Musculoskeletal: Negative for: Leg Pain (or swelling) Physical Exam - Reviewed Nursing Documentation Reviewed: Yes Vital Signs Reviewed: Yes - Physical Exam Appears: Positive for: No Acute Distress, Uncomfortable Head Exam: Positive for: ATRAUMATIC, NORMAL INSPECTION, NORMOCEPHALIC Skin: Positive for: Normal Color Eye Exam: Positive for: Normal appearance ENT: Positive for: Normal ENT Inspection Neck: Positive for: Normal Cardiovascular/Chest: Positive for: Regular Rate, Rhythm Respiratory: Positive for: Normal Breath Sounds. Negative for: Respiratory Distress Pulses-Radial (L): 2+ Pulses-Radial (R): 2+ Gastrointestinal/Abdominal: Positive for: Soft, Tenderness (mildly diffuse) Back: Positive for: Normal Inspection. 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 Negative for: Black Stool, Blood Streaked Stool (on gross exam) Extremity: Positive for: Normal ROM (upper/lower) Neurological/Psych: Positive for: Awake, Alert, Normal Tone, Oriented - Laboratory Results Result Diagrams: 12/29/18 09:50 12/29/18 09:50 Interpretation Of Abn Labs: no acute - ECG O2 Sat by Pulse Oximetry: 97 (RA) Pulse Ox Interpretation: Normal - CT Scan/US ct Other Rad Studies (CT/US): Read By Radiologist Other Rad Interpretation: no acute - Progress ED Course And Treament: 1445: Stable. AAOx3. Tolerated PO. Fu with pcp. Medical Decision Making Medical Decision Making: Time: 812 Initial Plan: * CT ABD/pelvis * Labs * IV fluids * Omnipaque 240 PO * Pepcid IVP * Toradol IVP Time: 1100 --Labs: (-) significant clinical abnormality. Scribe Attestation: Documented by Kandice Reddy, acting as a scribe for Cal Ortiz MD. Provider Scribe Attestation: All medical record entries made by the Scribe were at my direction and personally dictated by me. I have reviewed the chart and agree that the record accurately reflects my personal performance of the history, physical exam, medical decision making, and the department course for this patient. I have also personally directed, reviewed, and agree with the discharge instructions and disposition. Disposition - Clinical Impression Clinical Impression: Abdominal pain, Bleeding hemorrhoid - Patient ED Disposition Is Patient to be Admitted: No Counseled Patient/Family Regarding: Studies Performed, Diagnosis, Need For Followup, Rx Given - Disposition Referrals: [facility] [Outside] - 01/02/19 Disposition: Routine/Home Disposition Time: 14:40 Condition: STABLE Additional Instructions: Return if not better in 3 days. Prescriptions: Hydrocortisone 2.5% (Rectal) [Anusol-HC] 30 applic OK BID 5 Days tube Instructions: Stomach Ache and Stomach Upset, Hemorrhoids (DC) Forms: [facility] ED School/Work Excuse
[2018-12-29 10:03] LABS: BASO # 0.1 K/uL (0.0-0.2); EOS # 0.4 K/uL (0.0-0.7); EOS % 7.4 % (0.0-4.0); LYMPH # 2.4 K/uL (1.0-4.3); LYMPH % 39.5 % (20.0-40.0); MEAN CELL VOLUME 89.7 fl (80.0-94.0); MEAN CORPUSCULAR HEMOGLOBIN 30.3 pg (27.0-31.0); MEAN CORPUSCULAR HGB CONC 33.7 g/dL (33.0-37.0); MONO # 0.5 K/uL (0.0-0.8); MONO % 7.8 % (0.0-10.0); NEUT # 2.7 K/uL (1.8-7.0); NEUT % 44.3 % (50.0-75.0); RBC 4.62 Mil/uL (4.40-5.90); RED CELL DISTRIBUTION WIDTH 12.9 % (11.5-14.5)
[2018-12-29 10:14] LABS: ALB/GLOB RATIO 1.4 (1.0-2.1); ALBUMIN 4.6 g/dL (3.5-5.0); ALT/SGPT 33 U/L (21-72); AST/SGOT 36 U/L (17-59); BLOOD UREA NITROGEN 12 mg/dl (9-20); CALCIUM 9.3 mg/dL (8.4-10.2); GFR NON-AFRICAN AMERICAN > 60
[2018-12-29] MEDS ORDERED: Iohexol 240 (50 ml) ONE (10:36)
[2018-12-29] MEDS ORDERED: Iohexol 300 100 ML IJ ONE (13:12)
[2018-12-29] MEDS ORDERED: Sodium Chloride 0.9% 50 ML IV ONE (13:13)
--- NOTE | 2018-12-29 13:51 | CT ---
Date of service: 12/29/2018 PROCEDURE: CT Abdomen and Pelvis with contrast HISTORY: abd pain COMPARISON: None. TECHNIQUE: Contrast dose: 95 mL of Omnipaque 300 intravenously. Axial and reformatted coronal and sagittal CT images of the abdomen and pelvis were obtained after IV and oral contrast administration. Radiation dose: Total exam DLP = 462.07 mGy-cm. This CT exam was performed using one or more of the following dose reduction techniques: Automated exposure control, adjustment of the mA and/or kV according to patient size, and/or use of iterative reconstruction technique. FINDINGS: LOWER THORAX: Unremarkable. LIVER: Mild hepatomegaly with findings suggestive of [id number] hepatic steatosis. GALLBLADDER AND BILE DUCTS: Unremarkable. PANCREAS: Unremarkable. No gross lesion or ductal dilatation. SPLEEN: Unremarkable. ADRENALS: Unremarkable. No mass. KIDNEYS AND URETERS: Unremarkable. No hydronephrosis. No solid mass. VASCULATURE: Unremarkable. No aortic aneurysm. No aortic atherosclerotic calcification or mural plaque present. BOWEL: Unremarkable. No obstruction. No gross mural thickening. APPENDIX: Normal appendix. PERITONEUM: Unremarkable. No free fluid. No free air. LYMPH NODES: Unremarkable. No enlarged lymph nodes. BLADDER: Mild urinary bladder wall thickening versus incomplete distention. REPRODUCTIVE: Unremarkable. BONES: No acute fracture. OTHER FINDINGS: None. IMPRESSION: Mild urinary bladder wall thickening versus incomplete distention. No CT evidence of cholecystitis pancreatitis or appendicitis. Mild hepatomegaly with findings suggestive of [id number] hepatic steatosis.
[2018-12-29 15:33] VITALS: BP 112/78; PULSE 76; RESP 20; TEMP 98; O2SAT 98
== END 2018-12-29 15:33 | disposition home or self-care (01) ==
LOC: H.ER 07:52
DX: R10.9 Unspecified abdominal pain (principal); K64.9 Unspecified hemorrhoids
CPT/HCPCS: 74177; 80053; 85025; 96361; 96374; 96375; 99283; G0328; J1885; J7030; Q9966; Q9967